=== PATIENT | female | born 1990 | race Hispanic/Latino ===

== ENCOUNTER 2019-10-18 11:07 | Observation (INO) | payer OTHER ==
[~2019-10-18 11:07] MED LIST: Iopamidol 370 76% 100 ML VIAL ONE; Sodium Chloride 0.9% 1,000 ML BAG ONE
[2019-10-18] MEDS ORDERED: Acetaminophen 500 MG TAB ONE (11:58)
[2019-10-18 12:02] LABS: Bilirubin Negative (Negative); Blood, Urine Moderate (Negative); Clarity Hazy (Clear); Glucose, Urine (Dipstick) Negative (Negative); Ketone, Urine Negative (Negative); Leukocyte Small (Negative); Nitrite Negative (Negative); Protein, Urine (Dipstick) 30 mg/dL (Neg-Trace)
[2019-10-18 12:12] LABS: Bacteria/HPF 1+ HPF (None Seen); WBC/HPF 21-50 HPF (0-3)
[2019-10-18 12:14] LABS: ALT (SGPT) 8 U/L (8-55); AST (SGOT) 13 U/L (5-34); Albumin 4.4 g/dL (3.5-5.0); Alkaline Phosphatase 65 U/L (40-110); Anion Gap 15 mmol/L (10-20); BUN (Urea Nitrogen) 10 mg/dL (7.0-18.7); Bilirubin, Total 1.2 mg/dL (0.2-1.2); Calc. Creatinine Clearance 0 mL/min (70-130); Calcium 9.2 mg/dL (7.8-10.44); Carbon Dioxide 19 mmol/L (22-29); Chloride 105 mmol/L (98-107); Estimated GFR-MDRD 84; Globulin 3.2 g/dL (2.4-3.5); Glucose 101 mg/dL (70-105); Lipase 8 U/L (8-78); Potassium 3.9 mmol/L (3.5-5.1); Protein, Total 7.6 g/dL (6.0-8.3); Sodium 135 mmol/L (136-145)
[2019-10-18 12:18] LABS: Hemoglobin 11.5 g/dL (12.0-16.0); Lymphocytes 2 % (21-51); MDiff Complete? YES; Mean Corpuscular HGB CONC 30.9 g/dL (32.0-36.0); Mean Corpuscular Hemoglobin 26.2 pg (27.0-31.0); Mean Corpuscular Volume 84.7 fL (78.0-98.0); Mean Platelet Volume 9.5 fL (7.4-10.4); Monocytes 3 % (0-10); Neutrophil 91 % (42-75); Platelet Count 249 thou/uL (130-400); Platelet Morphology Comment Appears Adequate; RBC Distribution Width 14.5 % (11.5-14.5); Reactive Lymphocytes 4 % (0-10); Red Blood Cell (RBC) Count 4.41 mill/uL (4.20-5.40); White Blood Cell (WBC) Count 15.7 thou/uL (4.8-10.8)
[2019-10-18 12:22] LABS: Pregu Control Background? CLEAR/WHITE (CLR/WHITE); Pregu Control Bar Appear? YES (CONTROL BAR)
[2019-10-18 12:24] LABS: Pregnancy Test - Urine (BHCG) Negative (Negative)
--- NOTE | 2019-10-18 12:27 | RAD ---
PORTABLE CHEST: DATE: 10/18/2019. PROVIDED CLINICAL HISTORY: Dyspnea. FINDINGS: Cardiac and mediastinal silhouette is within normal limits. Lungs appear clear. No pleural fluid or pneumothorax apparent. IMPRESSION: No evidence for an acute cardiopulmonary process. POS: CARROLL
[2019-10-18] MEDS ORDERED: Sodium Chloride 0.9% 100 ML ONE (12:33)
[2019-10-18] MEDS ORDERED: Piperacillin/Tazobactam 3.375 GM VIAL ONE (12:33)
--- NOTE | 2019-10-18 13:01 | CT ---
CT ABDOMEN AND PELVIS WITH IV CONTRAST: DATE: 10/18/2019. PROVIDED CLINICAL HISTORY: Abdominal pain. FINDINGS: The visualized lung bases are free of significant opacity. There are patchy foci of diminished attenuation involving the renal cortices bilaterally, predominant ly involving both upper poles. The solid abdominal organs demonstrate an otherwise unremarkable CT a ppearance. There is evidence for urothelial enhancement, particularly on the right. The gallbladder is decompressed. Evaluation for appendicitis and for inflammatory fat stranding is l imited due to the lack of oral contrast and paucity of intraperitoneal fat. There is no evidence for bowel obstruction, free fluid, or free air. The osseous structures demonstrate no concerning lytic or blastic lesions. IMPRESSION: 1. Patchy foci of diminished attenuation involving the kidneys bilaterally and associated urothelial enhancement, suspicious for urinary tract infection and associated pyelonephritis. 2. Nonvisualization of the appendix. POS: CARROLL
[2019-10-18 14:47] VITALS: BMI 17.7
[2019-10-18] MEDS ORDERED: Calcium Carbonate 500 MG ChewTAB PO PRN (14:51)
[2019-10-18] MEDS ORDERED: HYDROcodone/Acetaminophen 5/325 mg Tablet PO PRN ×2 (14:51)
[2019-10-18] MEDS ORDERED: Acetaminophen 650 MG Suppository PR PRN (14:51)
[2019-10-18] MEDS ORDERED: Ondansetron PF 4 MG/2 ML Vial SLOW IVP PRN (14:51)
[2019-10-18] MEDS ORDERED: Ondansetron ODT 4 MG TAB PO PRN (14:51)
[2019-10-18] MEDS: Sodium Chloride 0.9% 1,000 ML IV SCH (15:00)
[2019-10-18] MEDS ORDERED: Ibuprofen 600 MG TAB PO PRN (16:10)
[2019-10-18] MEDS: cefTRIAXone\\ROCEPHIN 1 GM in Sodium Chloride 0.9% 100 ML IVPB SCH (16:36)
[2019-10-18] MEDS: Acetaminophen 325 MG TAB PO PRN (21:05)
[2019-10-18] MEDS: Famotidine 20 MG TAB PO SCH (21:05)
--- NOTE | 2019-10-18 23:24 | HP ---
HISTORY OF PRESENT ILLNESS: The patient is a 29-year-old female with no past medical history, who presented to the emergency department with a 1-day history of fever, chills, and flank pain. The patient reports relatively rapid onset of symptoms. Denies any other symptoms including abdominal pain, urinary symptoms, or cough. The patient was noted to be tachycardic in the 130s in the emergency department. She was given a dose of Zosyn and labs and imaging noted the diagnosis of pyelonephritis. The patient's tachycardia did improve; however, she was still tachycardic in the 100s. The decision was made for admission. PAST MEDICAL HISTORY: None. MEDICATIONS: None. ALLERGIES: NO KNOWN DRUG ALLERGIES. PAST SURGICAL HISTORY: No surgical history. SOCIAL HISTORY: The patient is currently undergoing a divorce and does report increased anxiety related to this. She has three children. She currently smokes half pack every other day. Denies any alcohol or drug use. REVIEW OF SYSTEMS: GENERAL: The patient reports fever and chills. EYES: The patient denies vision changes or eye pain. EARS, NOSE, AND THROAT: The patient denies nasal congestion, rhinorrhea, or sore throat. CARDIOVASCULAR: The patient denies chest pain or palpitations. RESPIRATORY: The patient denies cough or shortness of breath. GASTROINTESTINAL: The patient denies nausea, vomiting, diarrhea, or constipation. GENITOURINARY: The patient denies hematuria or dysuria. The patient does report flank pain. MUSCULOSKELETAL: The patient denies muscle weakness or tenderness. NEUROLOGICAL: The patient denies paresthesias or headache. PSYCHIATRIC: The patient does report some anxiety. PHYSICAL EXAMINATION: VITAL SIGNS: Temperature 99, pulse 101, respirations 16, oxygen 100% on room air, and blood pressure 196/61. GENERAL: The patient is alert and oriented x3, in no current distress. HEENT: Normocephalic and atraumatic. Extraocular muscles are intact. Pupils are equal, round, and reactive to light. Oropharynx, clear with moist mucous membranes. CARDIOVASCULAR: Regular rate and rhythm. No murmurs, rubs, or gallops. RESPIRATORY: Lungs are clear to auscultation bilaterally. No crackles, wheezes, or rhonchi. ABDOMEN: Soft, nontender to palpation. No organomegaly. No suprapubic tenderness noted. Right-sided CVA tenderness noted. EXTREMITIES: Normal bulk and tone. No peripheral edema. LABORATORY DATA: CBC; white blood cell count of 15.7, hemoglobin 11.5, hematocrit 37.4, platelet count 249. Chemistry; sodium 135, potassium 3.9, chloride 105, carbon dioxide 19, BUN 10, creatinine 0.82, glucose 101, calcium 9.2, AST 13, ALT 8, alkaline phosphatase 65. Urine protein 30, blood moderate, leukocyte esterase small, white blood cells 21 to 50, squamous cells 7 to 10, 1+ bacteria. UPT negative. IMAGING: Chest x-ray shows no evidence for acute cardiopulmonary process. CT of the abdomen and pelvis with IV contrast shows patchy foci of diminished attenuation involving the kidneys bilaterally and associated with urothelial enhancement suspicious for urinary tract infection and associated pyelonephritis. ASSESSMENT AND PLAN: The patient is a 29-year-old female with no past medical history with diagnosis of acute pyelonephritis. 1. Acute pyelonephritis. We will admit the patient on an inpatient basis to medical unit. We will continue IV fluids overnight and we will continue IV antibiotics as well. We will repeat the CBC and BMP in the morning to help monitor for clinical improvement. Start the patient on a regular diet. Duration of stay depending on clinical course. 2. Tobacco abuse. Strongly encouraged smoking cessation. Job ID: [id number]
[2019-10-19] MEDS: Sodium Chloride 0.9% 1,000 ML IV SCH ×2 (03:44→16:24)
[2019-10-19] MEDS: Acetaminophen 325 MG TAB PO PRN ×2 (04:02→12:58)
[2019-10-19 05:54] LABS: Anion Gap 14 mmol/L (10-20); BUN (Urea Nitrogen) 6 mg/dL (7.0-18.7); Calc. Creatinine Clearance 93 mL/min (70-130); Calcium 8.5 mg/dL (7.8-10.44); Carbon Dioxide 17 mmol/L (22-29); Chloride 110 mmol/L (98-107); Estimated GFR-MDRD Greater than 90; Glucose 162 mg/dL (70-105); Potassium 3.6 mmol/L (3.5-5.1); Sodium 137 mmol/L (136-145)
[2019-10-19 06:01] LABS: Band 8 % (5-11); Hemoglobin 9.7 g/dL (12.0-16.0); Lymphocytes 2 % (21-51); MDiff Complete? YES; Mean Corpuscular HGB CONC 31.4 g/dL (32.0-36.0); Mean Corpuscular Hemoglobin 26.7 pg (27.0-31.0); Mean Corpuscular Volume 84.9 fL (78.0-98.0); Mean Platelet Volume 8.6 fL (7.4-10.4); Monocytes 9 % (0-10); Neutrophil 81 % (42-75); Platelet Count 183 thou/uL (130-400); RBC Distribution Width 14.1 % (11.5-14.5); Red Blood Cell (RBC) Count 3.64 mill/uL (4.20-5.40); White Blood Cell (WBC) Count 16.5 thou/uL (4.8-10.8)
[2019-10-19] MEDS ORDERED: cefTRIAXone\\ROCEPHIN 1 GM in Sodium Chloride 0.9% 100 ML IVPB SCH (07:00)
[2019-10-19] MEDS: Famotidine 20 MG TAB PO SCH ×2 (08:29→20:43)
[2019-10-19] MEDS: cefTRIAXone\\ROCEPHIN 1 GM in Sodium Chloride 0.9% 100 ML IVPB SCH (16:24)
--- NOTE | 2019-10-19 21:56 | PRG ---
DATE OF SERVICE: 10/19/2019 SUBJECTIVE: The patient was seen and examined at the bedside. She reports feeling better compared to admission. She did spike a temperature overnight. Currently is afebrile. Denies any chills, nausea, or vomiting. OBJECTIVE: VITAL SIGNS: T-max 102, pulse 76, oxygen 96% on room air, and blood pressure 95/64. GENERAL: The patient is alert, oriented, in no distress. HEENT: Normocephalic and atraumatic. Extraocular muscles intact. CARDIOVASCULAR: Regular rate and rhythm. No murmurs, rubs, or gallops. LUNGS: Clear to auscultation bilaterally. ABDOMEN: Soft, nontender to palpation, nondistended. No CVA tenderness. EXTREMITIES: Normal bulk and tone. No peripheral edema noted. ASSESSMENT AND PLAN: Acute pyelonephritis. We will hold the patient's today due to spiking in temperature and continued white count. We will continue IV fluids and encourage p.o. intake. Blood cultures and urine cultures remain pending. We will continue the IV antibiotics. Possible discharge tomorrow on oral antibiotics depending on the patient's clinical course. Deep venous thrombosis prophylaxis, SCDs. Job ID: [id number]
[2019-10-20 05:50] LABS: Band 6 % (5-11); Hemoglobin 8.6 g/dL (12.0-16.0); Lymphocytes 20 % (21-51); MDiff Complete? YES; Mean Corpuscular HGB CONC 30.9 g/dL (32.0-36.0); Mean Corpuscular Hemoglobin 26.3 pg (27.0-31.0); Mean Platelet Volume 9.5 fL (7.4-10.4); Monocytes 4 % (0-10); Neutrophil 70 % (42-75); Platelet Count 187 thou/uL (130-400); RBC Distribution Width 14.6 % (11.5-14.5); Red Blood Cell (RBC) Count 3.27 mill/uL (4.20-5.40); White Blood Cell (WBC) Count 9.9 thou/uL (4.8-10.8)
[2019-10-20] MEDS: Sodium Chloride 0.9% 1,000 ML IV SCH (07:59)
[2019-10-20] MEDS: Famotidine 20 MG TAB PO SCH (08:17)
[2019-10-20 09:38] VITALS: BP 94/58; TEMP 98.6
--- NOTE | 2019-10-20 19:22 | DIS ---
DATE OF ADMISSION: 10/18/2019 DATE OF DISCHARGE: 10/20/2019 PRIMARY ATTENDING: Ibeth Valverde MD PRIMARY DIAGNOSIS: Acute pyelonephritis. SECONDARY DIAGNOSIS: Tobacco abuse. DISCHARGE MEDICATIONS: Omnicef 300 mg p.o. b.i.d. x7 days. PROCEDURES AND IMAGING: CT of abdomen and pelvis that showed patchy foci of diminished attenuation involving both kidneys, suspicious for urinary tract infection and associated pyelonephritis. CONSULTS: None. HISTORY OF PRESENT ILLNESS: The patient is a 29-year-old female with no past medical history, who presented to the emergency department with signs and symptoms consistent with acute pyelonephritis. She received IV antibiotics in the emergency department and was admitted for continued monitoring and treatment. The patient had a relatively unremarkable course. Continued IV antibiotics were received. Blood cultures and urine cultures were obtained in the emergency department prior to admission and are still pending at the time of discharge. The patient will be discharged with oral antibiotics to be continued for a week's time and she will follow up on an outpatient basis. The patient is stable for discharge at this time. The patient's vitals today; temperature 98.7, pulse 74, respirations 16, oxygen 100% on room air, blood pressure 99/56. Physical exam is largely unremarkable. DISCHARGE INSTRUCTIONS: 1. Location: Home. 2. Diet: Regular. 3. Activity: Ad chanda. 4. Followup: The patient is to follow up with myself in 3 to 5 days. Job ID: [id number]
== END 2019-10-20 11:10 | disposition home or self-care (01) ==
LOC: MADERS 11:07 → EDSEX 11:07 → MADMS 14:08
PROVIDERS: ADMIT Family Medicine; ATTEND Family Medicine
DX: A41.9 Sepsis, unspecified organism (principal); N10 Acute pyelonephritis; F17.210 Nicotine dependence, cigarettes, uncomplicated
CPT/HCPCS: 36415; 71045; 74177; 80048; 80053; 81003; 81015; 81025; 83605; 83690; 85025; 87040; 87077; 87086; 87186; 93005; J0696; J2543; J3490; J7050; Q9967